=== PATIENT | female | born 1955 | race Caucasian/White ===

== ENCOUNTER → 2017-03-04 | Day surgery (SDC) | payer MEDICAID ==
[~2017-03-04] MED LIST: ASTEPRO205.5 MCG/; FAMOTIDINE PO; FLONASE ALLERG9.9 ML INH; LIPITOR20 MG PO; METFORMIN HCL500 M2 PO; OXYCODON-ACETA1 EAC1 PO; TRINTELLIX PO
--- NOTE | ~2017-03-04 | OR ---
Unit #: [id number] #: [id number] Patient: TATIANA CROSS [id number] [address] [place], [place] [address] [id number] O MR#: [id number] NAME: TATIANA CROSS ROOM: Date of Procedure: 03/04/2017 Admission Date: 03/04/2017 Surgeon: David Rivera M.D. : 1955 Attending Physician: David Rivera M.D. Primary Care Physician: Ssuu Jimenez M.D. OPERATIVE REPORT PROCEDURES PERFORMED Esophagogastroduodenoscopy with biopsy, colonoscopy with biopsy, colonoscopy with snare polypectomy. INDICATIONS FOR PROCEDURE A 61-year-old with chronic GERD and intermittent dysphagia, also with history of polyps in the past, undergoing colonoscopy and upper endoscopy. MEDICATIONS Monitored anesthesia. POSTOPERATIVE FINDINGS 1. Small hiatal hernia along with small segment of Faith esophagus. Biopsies were taken. 2. Chronic gastritis. Biopsies were taken. 3. Normal duodenum and distal duodenum. 4. Colonoscopy completed to cecum. Prep was good. 5. Polyp, ascending colon, 2 to 3 mm, removed using biopsy forceps. 6. Polyp, transverse colon, 5 to 6 mm, snared and sent for histopathology. 7. Rest of the colon exam was normal. 8. Internal hemorrhoids, small. PLAN Follow up on the pathology report. Continue PPI and reflux precautions. DESCRIPTION OF PROCEDURE The patient was explained of the procedure, risks, and benefits along with the risks and benefits of anesthesia. She was brought to the endoscopy room. Propofol anesthesia was given. Bite block was placed. The scope was passed down the mouth into esophagus, stomach, duodenum, and distal duodenum. Findings as described. Biopsies were taken. Gently, I pulled the scope out of the patient's mouth. At this time, she was turned around and repositioned for colonoscopy. Rectal exam was done, which was normal. Colonoscope was lubricated, passed up the rectum, advanced under direct vision all the way to the cecum. Cecum was identified by ileocecal valve and appendiceal orifice. Two polyps were seen as described. I retroflexed in the rectum, small hemorrhoids seen. The scope was gently pulled out. She tolerated it well. Unit #: [id number] #: [id number] Patient: TATIANA CROSS Dictated by... Gene Juarez/tirso TD: 03/04/2017 17:12 JOB #: [id number] OPERATIVE REPORT Page 1 of 1 X David Rivera MD PROCEDURE OPERATIVE NOTE
== END | disposition home or self-care (01) ==
LOC: COPS 07:28
DX: K22.70 Barrett's esophagus without dysplasia (principal); K29.50 Unspecified chronic gastritis without bleeding; K44.9 Diaphragmatic hernia without obstruction or gangrene; Z12.11 Encounter for screening for malignant neoplasm of colon; K63.5 Polyp of colon; D12.3 Benign neoplasm of transverse colon; K64.8 Other hemorrhoids; K21.9 Gastro-esophageal reflux disease without esophagitis; E11.9 Type 2 diabetes mellitus without complications; Z79.84 Long term (current) use of oral hypoglycemic drugs; E66.9 Obesity, unspecified; F17.200 Nicotine dependence, unspecified, uncomplicated; Z79.899 Other long term (current) drug therapy; Z87.01 Personal history of pneumonia (recurrent); Z87.440 Personal history of urinary (tract) infections; Z98.890 Other specified postprocedural states; Z88.1 Allergy status to other antibiotic agents
CPT/HCPCS: 82947; 88305; 88312; J2250